=== PATIENT | female | born 1985 | race Two or more races ===

== ENCOUNTER 2018-05-19 05:44 | Inpatient (IN) | payer BC ==
[2018-05-19] MEDS ORDERED: PROPOFOL 20 ML (07:27)
[2018-05-19] MEDS ORDERED: MIDAZOLAM 1 MG/ML 2 ML INJ (07:27)
[2018-05-19] MEDS ORDERED: ROCURONIUM 50 MG INJ (07:27)
[2018-05-19] MEDS ORDERED: CEFAZOLIN 1 GM INJ (07:27)
[2018-05-19] MEDS ORDERED: morphine SULFATE/PF (10 MG/10 ML) INJ (07:27)
[2018-05-19] MEDS ORDERED: PHENYLephrine (100 MCG/ML) 5ML SYG ×2 (07:53→08:38)
[2018-05-19] MEDS ORDERED: VASOPRESSIN 20 UNITS INJ (08:03)
[2018-05-19] MEDS ORDERED: DEXAMETHASONE 4 MG/ML 1 ML INJ (08:32)
[2018-05-19] MEDS ORDERED: METOCLOPRAMIDE 10 MG INJ (08:32)
[2018-05-19] MEDS ORDERED: ROPIVACAINE 0.2% 20 ML VIAL (08:32)
[2018-05-19] MEDS ORDERED: KETOROLAC 30 MG INJ (08:32)
[2018-05-19] MEDS ORDERED: ONDANSETRON 4 MG INJ (08:32)
[2018-05-19] MEDS ORDERED: ACETAMINOPHEN 1000MG/100ML IV 100 ML (08:36)
[2018-05-19] MEDS ORDERED: HETASTARCH 6% NACL 500 ML (08:36)
[2018-05-19] MEDS ORDERED: GLYCOPYRROLATE 0.4 MG INJ (08:57)
[2018-05-19] MEDS ORDERED: NEOSTIGMINE 3 MG/3 ML SYRINGE (08:57)
[2018-05-19] MEDS ORDERED: OXYCODONE/ACETAMINOPHEN (5/325) TAB PO (09:30)
[2018-05-19] MEDS ORDERED: LABETALOL HCL 20MG INJ IV (09:30)
[2018-05-19] MEDS ORDERED: EPHEDrine SULFATE 50 MG/5 ML SYG IV (09:30)
[2018-05-19] MEDS ORDERED: HYDROCODONE/APAP (5/325) TAB PO (09:30)
[2018-05-19] MEDS ORDERED: ACETAMINOPHEN 500 MG TAB PO (09:30)
[2018-05-19] MEDS ORDERED: KETOROLAC 30 MG INJ IV (09:30)
[2018-05-19] MEDS ORDERED: ONDANSETRON 4 MG INJ IV ×2 (09:30)
[2018-05-19] MEDS ORDERED: METOCLOPRAMIDE 10 MG INJ IV (09:30)
[2018-05-19] MEDS ORDERED: morphine 2 MG INJ IV ×2 (09:30)
[2018-05-19] MEDS ORDERED: HYDROmorphONE 1 MG/5 ML IV SYRINGE IV ×3 (09:30)
[2018-05-19] MEDS ORDERED: MEPERIDINE 25 MG INJ IV (09:30)
[2018-05-19] MEDS ORDERED: NALBUPHINE HCL (10 MG/1 ML) INJ IV (09:30)
[2018-05-19] MEDS ORDERED: ALBUMIN HUMAN 5% 250 ML IV (09:30)
[2018-05-19] MEDS ORDERED: FENTAnyl 50 MCG/ML VIAL IV ×3 (09:30)
[2018-05-19] MEDS ORDERED: DIPHENHYDRAMINE 50 MG INJ IV (09:30)
[2018-05-19] MEDS ORDERED: HYDROmorphONE 0.5 MG/0.5 ML SYG IV ×2 (09:30)
[2018-05-19] MEDS ORDERED: NALOXONE (0.4 MG/ML) INJ IV (09:30)
[2018-05-19] MEDS: LACTATED RINGER'S 1,000 ML IV ×2 (12:10→19:46)
[2018-05-19] MEDS: DIPHENHYDRAMINE 50 MG INJ IV (19:46)
[2018-05-20] MEDS: LACTATED RINGER'S 1,000 ML IV ×3 (04:00→19:00)
[2018-05-20] MEDS: MAGNESIUM HYDROXIDE 30ML CUP PO ×2 (06:12→17:00)
[2018-05-20] MEDS: BISACODYL 10 MG SUPP PR ×2 (06:12→17:00)
[2018-05-20 06:18] LABS: ADD MAN DIFF? NO
[2018-05-20 06:24] LABS: WHITE BLOOD COUNT 10.6 10^3/ul (4.8-10.8)
[2018-05-20 06:24] LABS: BASOPHILS % 0.2 % (0.0-2.0); HEMATOCRIT 27.3 % (37.0-47.0); HEMOGLOBIN 8.7 g/dl (12.0-16.0); LYMPHOCYTES # 1.4 10^3/ul (0.8-2.9); LYMPHOCYTES % 13.1 % (15.0-51.0); MEAN CORPUSCULAR HEMOGLOBIN 27.4 pg (29.0-33.0); MEAN CORPUSCULAR HGB CONC 31.9 g/dl (32.0-37.0); MEAN CORPUSCULAR VOLUME 85.8 fl (82.0-101.0); MEAN PLATELET VOLUME 11.2 fl (7.4-10.4); MONOCYTE # 0.8 10^3/ul (0.3-0.9); MONOCYTES % 7.7 % (0.0-11.0); NEUTROPHIL # 8.3 10^3/ul (1.6-7.5); NEUTROPHILS % 78.5 % (39.0-77.0); PLATELET COUNT 251 10^3/UL (140-415); RED BLOOD COUNT 3.18 10^6/ul (4.20-5.40); RED CELL DISTRIBUTION WIDTH 14.7 % (11.5-14.5)
[2018-05-20 06:45] LABS: ALANINE AMINOTRANSFERASE 21 IU/L (13-69); ALBUMIN 2.4 g/dl (3.3-4.9); ALBUMIN/GLOBULIN RATIO 0.92; ALKALINE PHOSPHATASE 36 IU/L (42-121); ASPARTATE AMINO TRANSFERASE 15 IU/L (15-46); BILIRUBIN,INDIRECT 1.1 mg/dl (0-1.1); BILIRUBIN,TOTAL 1.1 mg/dl (0.2-1.3); BLOOD UREA NITROGEN 7 mg/dl (7-20); CALCIUM 8.2 mg/dl (8.4-10.2); CARBON DIOXIDE 24 mmol/L (21-31); CHLORIDE 107 mmol/L (97-110); GLUCOSE 80 mg/dl (70-220); POTASSIUM 3.9 mmol/L (3.5-5.1)
[2018-05-20 06:59] LABS: ANION GAP 11 (8-16); SODIUM 138 mmol/L (135-144)
[2018-05-20] MEDS ORDERED: HYDROCODONE/APAP (5/325) TAB PO ×2 (09:30)
[2018-05-20] MEDS: IBUPROFEN 600 MG TAB PO ×2 (11:05→21:19)
[2018-05-21] MEDS: LACTATED RINGER'S 1,000 ML IV ×2 (03:00→11:00)
[2018-05-21] MEDS: IBUPROFEN 600 MG TAB PO ×2 (03:28→13:44)
[2018-05-21 05:02] LABS: ADD MAN DIFF? NO
[2018-05-21 05:06] LABS: WHITE BLOOD COUNT 9.8 10^3/ul (4.8-10.8)
[2018-05-21 05:06] LABS: BASOPHILS % 0.4 % (0.0-2.0); EOSINOPHILS # 0.1 10^3/ul (0.0-0.5); EOSINOPHILS % 0.6 % (0.0-7.0); HEMATOCRIT 26.4 % (37.0-47.0); HEMOGLOBIN 8.6 g/dl (12.0-16.0); LYMPHOCYTES # 1.8 10^3/ul (0.8-2.9); LYMPHOCYTES % 18.2 % (15.0-51.0); MEAN CORPUSCULAR HEMOGLOBIN 27.9 pg (29.0-33.0); MEAN CORPUSCULAR HGB CONC 32.6 g/dl (32.0-37.0); MEAN CORPUSCULAR VOLUME 85.7 fl (82.0-101.0); MEAN PLATELET VOLUME 10.9 fl (7.4-10.4); MONOCYTE # 0.7 10^3/ul (0.3-0.9); MONOCYTES % 7.6 % (0.0-11.0); NEUTROPHIL # 7.1 10^3/ul (1.6-7.5); NEUTROPHILS % 72.9 % (39.0-77.0); PLATELET COUNT 241 10^3/UL (140-415); RED BLOOD COUNT 3.08 10^6/ul (4.20-5.40); RED CELL DISTRIBUTION WIDTH 15.1 % (11.5-14.5)
== END 2018-05-21 18:15 | disposition home or self-care (01) | DRG 743 ==
LOC: REC 05:44 → MS1 10:15
PROVIDERS: Obstetrics & Gynecology
PROC: 0UB20ZZ Excision of Bilateral Ovaries, Open Approach (ICD-10-PCS; principal; 2018-05-19 07:27)
PROC: 0UDB8ZZ Extraction of Endometrium, Via Natural or Artificial Opening Endoscopic (ICD-10-PCS; 2018-05-19 07:27)
PROC: 0UB90ZZ Excision of Uterus, Open Approach (ICD-10-PCS; 2018-05-19 07:27)
PROC: 0UPD8HZ Removal of Contraceptive Device from Uterus and Cervix, Via Natural or Artificial Opening Endoscopic (ICD-10-PCS; 2018-05-19 07:27)
DX: D25.9 Leiomyoma of uterus, unspecified (principal); N92.0 Excessive and frequent menstruation with regular cycle; Z97.5 Presence of (intrauterine) contraceptive device; N83.202 Unspecified ovarian cyst, left side; N83.201 Unspecified ovarian cyst, right side; R10.2 Pelvic and perineal pain; E28.2 Polycystic ovarian syndrome; D50.9 Iron deficiency anemia, unspecified
CPT/HCPCS: 80053; 84702; 84703; 85025; 86850; 86900; 86901; 87086; 88300; 88305